=== PATIENT | male | born 1970 | race Caucasian/White ===

== ENCOUNTER 2018-12-20 09:41 | Emergency (ER) | payer OTHER ==
[~2018-12-20] VITALS: Ht 170.2 cm; Wt 86.0 kg
[~2018-12-20 09:41] MED LIST: AMLODIPINE; LISINOPRIL
[2018-12-20 10:10] VITALS: BP 182/95
== END 2018-12-20 10:20 | disposition home or self-care (01) ==
LOC: ER 09:41
DX: R04.0 Epistaxis (principal); I10 Essential (primary) hypertension; Z91.14 Patient's other noncompliance with medication regimen
CPT/HCPCS: 99281; Z7610

== ENCOUNTER 2022-08-16 07:34 | Inpatient (IN) | payer OTHER ==
[~2022-08-16] VITALS: Ht 170.2 cm; Wt 90.8 kg
[~2022-08-16 07:34] MED LIST changes: +AMLO10TA80 PO; -AMLODIPINE; +LISI20TA31 PO; -LISINOPRIL
[2022-08-16] MEDS ORDERED: ACETAMINOPHEN 325MG TABLET PO STA (08:44)
[2022-08-16] MEDS ORDERED: SODIUM CHLORIDE 0.9% 1000ML BAG (SEPSIS BOLUS) IV ONE (08:45)
[2022-08-16 09:02] LABS: HEMATOCRIT. 45.2 % (42.0-52.0); HEMOGLOBIN. 15.5 g/dL (14.0-18.0); MEAN CORPUSCULAR HEMOGLOBIN 31.4 pg (28.0-32.0); MEAN CORPUSCULAR VOLUME 91.8 fL (80.0-94.0); MEAN PLATELET VOLUME 8.3 fl (7.4-10.4); PLATELET 325 x1000/uL (130-400); RED BLOOD CELL COUNT 4.93 mill/uL (4.7-6.1); RED CELL DISTRIBUTION WIDTH 12.5 % (11.6-14.6)
[2022-08-16 09:07] LABS: CHLORIDE 101 mEq/L (98-107)
[2022-08-16 09:22] LABS: PROTHROMBIN TIME 11.1 sec (9.6-11.0)
[2022-08-16 10:01] LABS: PLATELET ESTIMATE NORMAL
[2022-08-16 10:49] LABS: CLARITY URINE CLEAR (CLEAR); COLOR URINE YELLOW (YELLOW); KETONES URINE NEGATIVE (NEGATIVE); LEUKOCYTE ESTERASE URINE NEGATIVE (NEGATIVE); NITRITE URINE NEGATIVE (NEGATIVE); OCCULT BLOOD URINE 1+ (NEGATIVE); PROTEIN URINE 1+ (NEGATIVE); UROBILINOGEN URINE 0.2 E.U./dL (0.2-1.0)
[2022-08-16] MEDS ORDERED: ONDANSETRON HCL 4MG/2ML INJ IV ONE (11:00)
[2022-08-16] MEDS ORDERED: VANCOMYCIN 1G PREMIX 200 ML IV ONE (12:00)
[2022-08-16] MEDS ORDERED: PIPERACILLIN/TAZ 3.375G PREMIX 50 ML IV ONE (12:00)
[2022-08-16] MEDS ORDERED: VANCOMYCIN 1G PREMIX 200 ML IV NR (13:45)
[2022-08-16] MEDS: AMLODIPINE 10MG TABLET PO SCH (15:00)
[2022-08-16] MEDS ORDERED: ACETAMINOPHEN 325MG TABLET PO PRN (15:00)
[2022-08-16] MEDS: DEXT 5%/0.45% NACL 1000ML 1,000 ML IV SCH (15:15)
[2022-08-16 15:51] VITALS: BP 158/102
[2022-08-16 20:00] VITALS: BP 174/102
[2022-08-16] MEDS: PIPERACILLIN/TAZOBACTAM 3.375 G in DEXTROSE 5% WATER 50 ML IV SCH (20:40)
[2022-08-16] MEDS: ONDANSETRON HCL 4MG/2ML INJ IV PRN (20:40)
[2022-08-16] MEDS: LOSARTAN POTASSIUM 50 MG TABLET PO SCH (21:52)
[2022-08-17] MEDS: DEXT 5%/0.45% NACL 1000ML 1,000 ML IV SCH ×2 (00:56→12:37)
[2022-08-17 04:00] VITALS: BP 156/98
[2022-08-17] MEDS: PIPERACILLIN/TAZOBACTAM 3.375 G in DEXTROSE 5% WATER 50 ML IV SCH ×2 (05:44→13:40)
[2022-08-17 06:36] LABS: BASOPHILS % 0.2 % (0.0-2.0); HEMATOCRIT. 42.9 % (42.0-52.0); HEMOGLOBIN. 14.7 g/dL (14.0-18.0); LYMPHOCYTES % 8.3 % (20.0-50.0); MEAN CORPUSCULAR HEMOGLOBIN 31.1 pg (28.0-32.0); MEAN CORPUSCULAR VOLUME 91.2 fL (80.0-94.0); MEAN PLATELET VOLUME 8.4 fl (7.4-10.4); MONOCYTES % 6.7 % (2.0-8.0); NEUTROPHILS % 84.8 % (40.0-76.0); PLATELET 283 x1000/uL (130-400); RED BLOOD CELL COUNT 4.71 mill/uL (4.7-6.1)
[2022-08-17 06:54] LABS: CHLORIDE 99 mEq/L (98-107)
[2022-08-17 08:00] VITALS: BP 151/97
[2022-08-17] MEDS: AMLODIPINE 10MG TABLET PO SCH (09:04)
[2022-08-17] MEDS: LOSARTAN POTASSIUM 50 MG TABLET PO SCH (09:04)
[2022-08-17 12:00] VITALS: BP 171/95
[2022-08-17] MEDS: ONDANSETRON HCL 4MG/2ML INJ IV PRN (12:38)
[2022-08-17] MEDS: HYDRALAZINE HCL 50MG TABLET PO SCH ×2 (15:22→17:28)
[2022-08-17 16:00] VITALS: BP 155/86
[2022-08-17] MEDS ORDERED: CEFTRIAXONE 2 G in DEXTROSE 5% WATER 50 ML IV SCH ×2 (17:45→20:00)
[2022-08-17] MEDS: METRONIDAZOLE 500 MG PREMIX 100 ML IV SCH (20:08)
[2022-08-17 20:21] VITALS: BP 126/72
[2022-08-18 00:39] VITALS: BP 123/82
[2022-08-18 04:00] VITALS: BP 135/82
[2022-08-18] MEDS: METRONIDAZOLE 500 MG PREMIX 100 ML IV SCH ×2 (04:23→12:17)
[2022-08-18] MEDS: DEXT 5%/0.45% NACL 1000ML 1,000 ML IV SCH ×2 (06:17→16:52)
[2022-08-18 06:35] LABS: BASOPHILS % 0.2 % (0.0-2.0); EOSINOPHILS % 0.1 % (0.0-5.0); HEMATOCRIT. 40.2 % (42.0-52.0); HEMOGLOBIN. 13.8 g/dL (14.0-18.0); LYMPHOCYTES % 12.3 % (20.0-50.0); MEAN CORPUSCULAR HEMOGLOBIN 31.3 pg (28.0-32.0); MEAN CORPUSCULAR VOLUME 91.3 fL (80.0-94.0); MEAN PLATELET VOLUME 8.2 fl (7.4-10.4); MONOCYTES % 12.3 % (2.0-8.0); NEUTROPHILS % 75.1 % (40.0-76.0); PLATELET 283 x1000/uL (130-400); RED CELL DISTRIBUTION WIDTH 13.2 % (11.6-14.6)
[2022-08-18 07:34] VITALS: BP 114/69
[2022-08-18 07:57] LABS: CHLORIDE 101 mEq/L (98-107)
[2022-08-18] MEDS: AMLODIPINE 10MG TABLET PO SCH (08:40)
[2022-08-18] MEDS: HYDRALAZINE HCL 50MG TABLET PO SCH ×3 (08:40→16:50)
[2022-08-18] MEDS: LOSARTAN POTASSIUM 50 MG TABLET PO SCH (08:40)
[2022-08-18 12:00] VITALS: BP 117/70
[2022-08-18] MEDS ORDERED: HYDR-4135 MT (14:50)
[2022-08-18] MEDS ORDERED: LISI20TA31 MT (14:50)
[2022-08-18 16:00] VITALS: BP 124/76
[2022-08-18 16:12] VITALS: BP 124/76
[2022-08-19 10:11] LABS: HIV SCREEN 4G Non Reactive (Non Reactive)
[2022-08-20 04:07] LABS: OVA & PARASITE EXAM Final report (.)
== END 2022-08-18 17:30 | disposition home or self-care (01) | DRG 392 ==
LOC: ER 07:34 → 7WST 12:01 → EDBEDREQSVC 12:05 → EDBEDREQ 12:05 → EDBEDREQTM 12:05
PROVIDERS: ADMIT Internal Medicine; ATTEND Internal Medicine
DX: A09 Infectious gastroenteritis and colitis, unspecified (principal); E78.5 Hyperlipidemia, unspecified; I16.0 Hypertensive urgency; Z20.822 Contact with and (suspected) exposure to COVID-19; I11.0 Hypertensive heart disease with heart failure; D72.810 Lymphocytopenia; E66.9 Obesity, unspecified; I50.9 Heart failure, unspecified; Z68.31 Body mass index [BMI] 31.0-31.9, adult
CPT/HCPCS: 36415; 71045; 74176; 80048; 80053; 81003; 83605; 84145; 84484; 85025; 87045; 87177; 87209; 87389; 87426; 87449; 87493; 89055; 93005; 99285; J0696; J2405; J2543; J3370; J3490; J7030; J7060